=== PATIENT | female | born 1980 | race Caucasian/White ===

== ENCOUNTER 2020-06-01 10:30 | Emergency (ER) | payer MEDICAID ==
[~2020-06-01] VITALS: Ht 157.4 cm; Wt 129.2 kg
--- NOTE | 2020-06-01 10:53 | ED Cardiac General ---
History of Present Illness General Chief Complaint: Cardiac/General Problems Stated Complaint: TACHYCARDIA,DIZZINESS,SOA Source: patient Exam Limitations: no limitations History of Present Illness Date Seen by Provider: Jun 01, 2020 Time Seen by Provider: 10:45 Initial Comments Patient is a 40-year-old female who presents to the emergency department today with a chief complaint of palpitations and shortness of breath. Patient states that she has a history of supraventricular tachycardia with . She last delivered twins in November 2019. Patient states she has not had any significant problems with palpitations until the last couple of days. She denies any changes in her diet or excessive caffeine use. She has no history of thyroid disease. She states that she was on diltiazem and metoprolol throughout the end of her for her palpitations but discontinued this after delivery. Patient does not recall her doses of diltiazem and metoprolol. Patient states that she is moving here from [place] and does not currently have a primary care physician. Patient denies any recent fevers, chills, productive cough. No complaints of GI or symptoms. Patient states that the time of my evaluation that she is asymptomatic. She states when her heart is beating rapidly she feels short of breath and she feels like "my heart is going to beat out of my chest". All other review of systems reviewed and negative except as stated above. Timing/Duration: 1-2 days Severity: moderate Activities at Onset: none Associated Systoms: Denies Symptoms Allergies and Home Medications Allergies Coded Allergies: No Known Drug Allergies (Unverified , 06/01/20) Patient Home Medication List Home Medication List Reviewed: Yes Review of Systems Review of Systems Constitutional: no symptoms reported EENTM: No Symptoms Reported Respiratory: No Symptoms Reported Cardiovascular: Lightheadedness, Palpitations Gastrointestinal: No Symptoms Reported Genitourinary: No Symptoms Reported Musculoskeletal: no symptoms reported Skin: no symptoms reported Psychiatric/Neurological: No Symptoms Reported Endocrine: No Symptoms Reported Past Uogfxum-Uaftts-Lkyjwe Hx Patient Social History Recent Foreign Travel: No Contact w/Someone Who Travel: No Physical Exam Vital Signs Vital Signs - First Documented 06/01/20 10:30 Temp 36.5 Pulse 85 Resp 20 B/P (MAP) 104/82 (89) Pulse Ox 97 O2 Delivery Room Air Capillary Refill : Height, Weight, BMI Height: '" Weight: lbs. oz. kg; BMI Method: General Appearance: No Apparent Distress, WD/WN, Obese HEENT: PERRL/EOMI Neck: Full Range of Motion Respiratory: Lungs Clear, Normal Breath Sounds, No Accessory Muscle Use, No Respiratory Distress Cardiovascular: Regular Rate, Rhythm, No Gallop, No JVD, No Murmur, Normal Peripheral Pulses Gastrointestinal: Normal Bowel Sounds Extremity: Normal Capillary Refill, Non Tender Neurologic/Psychiatric: Alert, Oriented x3, No Motor/Sensory Deficits, Normal Mood/Affect Skin: Normal Color, Warm/Dry Progress/Results/Core Measures Results/Orders Lab Results Laboratory Tests Test 06/01/20 11:08 Range/Units Sodium Level 138 135-145 MMOL/L Potassium Level 4.2 3.6-5.0 MMOL/L Chloride Level 105 98-107 MMOL/L Carbon Dioxide Level 20 L 21-32 MMOL/L Anion Gap 13 5-14 MMOL/L Blood Urea Nitrogen 15 7-18 MG/DL Creatinine 0.82 0.60-1.30 MG/DL Estimat Glomerular Filtration Rate > 60 BUN/Creatinine Ratio 18 Glucose Level 107 H 70-105 MG/DL Calcium Level 9.0 8.5-10.1 MG/DL Magnesium Level 2.0 1.6-2.4 MG/DL My Orders Orders - LALITA DUVAL MD Ed Iv/Invasive Line Start (06/01/20 10:48) Basic Metabolic Panel (06/01/20 10:48) Magnesium (06/01/20 10:48) Ekg Tracing (06/01/20 11:09) Continuous Ekg Monitoring (06/01/20 11:09) Vital Signs/I&O 06/01/20 10:30 Temp 36.5 Pulse 85 Resp 20 B/P (MAP) 104/82 (89) Pulse Ox 97 O2 Delivery Room Air Progress Progress Note : Time: 10:53 Progress Note 40-year-old female presents to the emergency room today with a chief complaint of palpitations. Evaluation today includes a physical exam, EKG, BM 7 with magnesium level. Patient will be monitored here in the emergency department for signs or symptoms of SVT and then appropriately treated if necessary. Patient is comfortable currently with no acute complaints. 1146 Patient's chemistry with magnesium are normal. Patient has had no episodes of supraventricular tachycardia here in the emergency department. She will be sent home with instructions to stay well-hydrated. She is recommended to drink some of the Gatorade supplements or flavored water supplements. She verbalizes understanding of these discharge instructions, all questions are sought and answered and she is stable for discharge. Initial ECG Impression Date: Jun 01, 2020 Initial ECG Impression Time: 10:40 Initial ECG Rate: 78 Initial ECG Rhythm: Normal Sinus Initial ECG Intervals: Normal Initial ECG Impression: Normal Initial ECG Comparisson: No Previous ECG Available Departure Impression Primary Impression: Palpitations Disposition: 01 HOME, SELF-CARE Condition: Stable Departure-Patient Inst. Decision time for Depature: 11:50 Ref[facility]: [facility] [place]ructions: Palpitations (DC) Add. Discharge Instructions: Drink plenty of fluids to stay well-hydrated. You can drink [id number] Gatorade or electrolyte infused water to keep your electrolytes up. Remember the techniques I explained to stop the rapid heartbeat if they become necessary. Please follow-up with a primary care physician. Return to the emergency room for any return of symptoms especially associated with chest pain, shortness of breath, passing out spells or any other emergent concerns. LALITA DUVAL MD Jun 01, 2020 10:53
[2020-06-01 11:29] LABS: CHLORIDE 105 MMOL/L (98-107); POTASSIUM 4.2 MMOL/L (3.6-5.0); SODIUM 138 MMOL/L (135-145)
[2020-06-01 11:31] LABS: GLUCOSE 107 MG/DL (70-105)
[2020-06-01 11:33] LABS: CARBON DIOXIDE 20 MMOL/L (21-32)
[2020-06-01 11:35] LABS: CREATININE SERUM 0.82 MG/DL (0.60-1.30); GFR ESTIMATED > 60
[2020-06-01 11:36] LABS: BUN/CREATININE RATIO 18
[2020-06-01 12:05] VITALS: BP 138/68
== END 2020-06-01 12:05 | disposition home or self-care (01) ==
LOC: ER 10:38
DX: R00.2 Palpitations (principal); E66.9 Obesity, unspecified
CPT/HCPCS: 36415; 80048; 83735; 93005

== ENCOUNTER 2021-01-13 12:58 | Emergency (ER) | payer MEDICAID ==
[~2021-01-13] VITALS: Ht 157.5 cm; Wt 129.3 kg
--- NOTE | 2021-01-13 13:17 | ED Cardiac General ---
History of Present Illness General Chief Complaint: Cardiac/General Problems Stated Complaint: PVC Source: patient Exam Limitations: no limitations History of Present Illness Date Seen by Provider: Jan 13, 2021 Time Seen by Provider: 13:05 Initial Comments Patient is a 40-year-old female who presents to the emergency department today with a chief complaint of chest discomfort related to having frequent PVCs. Patient states that she was diagnosed with these when she was with her twins about a year ago. Patient states that she was placed on diltiazem and metoprolol but was taken off after . Patient states she is occasionally felt them since that time but over the last couple of days has had increasing frequency. Patient states that it feels like it is causing "panic attacks". She feels a little nauseous with the PVCs. She denies any recent illnesses such as fevers, chills, cough congestion, nausea, vomiting, diarrhea. No urinary complaints. Patient states she started her menstrual cycle today. She denies excessive caffeine use stating that she only drinks 2 cups of coffee a day. All other review of systems reviewed and negative except as stated above. Timing/Duration: constant, getting worse Severity: moderate Location: central Activities at Onset: none Prior CP/Workup: other (Prior echocardiogram and cardiology evaluation in [place]) NTG SL COAL WHEELER: No ASA po COAL WHEELER: No Allergies and Home Medications Allergies Coded Allergies: No Known Drug Allergies (Unverified , 06/01/20) Patient Home Medication List Home Medication List Reviewed: Yes Review of Systems Review of Systems Constitutional: see HPI EENTM: No Symptoms Reported Respiratory: No Symptoms Reported Cardiovascular: Palpitations Gastrointestinal: No Symptoms Reported Genitourinary: No Symptoms Reported Musculoskeletal: no symptoms reported Skin: no symptoms reported Psychiatric/Neurological: Anxiety All Other Systems Reviewed Negative Unless Noted: Yes Past Jvcpinv-Empctp-Ikibag Hx Patient Social History 2nd Hand Smoke Exposure: No Recent Hopitalizations: No Past Medical History Surgeries: Yes Appendectomy, Section Respiratory: Yes Asthma Cardiac: Yes (svt) Irregular Heartbeat Neurological: No Genitourinary: No Gastrointestinal: No Musculoskeletal: No Endocrine: No HEENT: No Cancer: No Psychosocial: No Integumentary: No Blood Disorders: No Physical Exam Vital Signs Vital Signs - First Documented 01/13/21 13:04 Temp 36.5 Pulse 87 Resp 20 B/P (MAP) 184/135 (151) O2 Delivery Room Air Capillary Refill : Height, Weight, BMI Height: '" Weight: lbs. oz. kg; 52.00 BMI Method: General Appearance: No Apparent Distress, WD/WN HEENT: PERRL/EOMI Neck: Normal Inspection Respiratory: Lungs Clear, Normal Breath Sounds, No Accessory Muscle Use Cardiovascular: Regular Rate, Rhythm, Other (Occasional PVCs auscultated) Gastrointestinal: Normal Bowel Sounds, Non Tender, Soft Extremity: Normal Inspection Neurologic/Psychiatric: Alert, Oriented x3, No Motor/Sensory Deficits, Normal Mood/Affect Skin: Normal Color, Warm/Dry Progress/Results/Core Measures Results/Orders Lab Results Laboratory Tests Test 01/13/21 13:21 Range/Units White Blood Count 8.8 4.3-11.0 10^3/uL Red Blood Count 5.05 3.80-5.11 10^6/uL Hemoglobin 15.0 11.5-16.0 g/dL Hematocrit 45 35-52 % Mean Corpuscular Volume 88 80-99 fL Mean Corpuscular Hemoglobin 30 25-34 pg Mean Corpuscular Hemoglobin Concent 34 32-36 g/dL Red Cell Distribution Width 13.5 10.0-14.5 % Platelet Count 296 130-400 10^3/uL Mean Platelet Volume 8.9 L 9.0-12.2 fL Immature Granulocyte % (Auto) 1 % Neutrophils (%) (Auto) 54 42-75 % Lymphocytes (%) (Auto) 38 12-44 % Monocytes (%) (Auto) 4 0-12 % Eosinophils (%) (Auto) 2 0-10 % Basophils (%) (Auto) 1 0-10 % Neutrophils # (Auto) 4.8 1.8-7.8 10^3/uL Lymphocytes # (Auto) 3.4 1.0-4.0 10^3/uL Monocytes # (Auto) 0.4 0.0-1.0 10^3/uL Eosinophils # (Auto) 0.2 0.0-0.3 10^3/uL Basophils # (Auto) 0.0 0.0-0.1 10^3/uL Immature Granulocyte # (Auto) 0.1 0.0-0.1 10^3/uL Sodium Level 141 135-145 MMOL/L Potassium Level 4.2 3.6-5.0 MMOL/L Chloride Level 106 98-107 MMOL/L Carbon Dioxide Level 22 21-32 MMOL/L Anion Gap 13 5-14 MMOL/L Blood Urea Nitrogen 15 7-18 MG/DL Creatinine 0.81 0.60-1.30 MG/DL Estimat Glomerular Filtration Rate > 60 BUN/Creatinine Ratio 19 Glucose Level 89 70-105 MG/DL Calcium Level 9.3 8.5-10.1 MG/DL Magnesium Level 2.1 1.6-2.4 MG/DL Thyroid Stimulating Hormone (TSH) 1.17 0.35-4.94 UIU/ML Free Thyroxine 0.90 0.70-1.48 NG/DL My Orders Orders - LALITA DUVAL MD Ed Iv/Invasive Line Start (01/13/21 13:14) Cbc With Automated Diff (01/13/21 13:14) Basic Metabolic Panel (01/13/21 13:14) Magnesium (01/13/21 13:14) Thyroid Stimulating Hormone (01/13/21 13:17) Free T4 (Free Thyroxine) (01/13/21 13:17) Ekg Tracing (01/13/21 14:30) Vital Signs/I&O 01/13/21 13:04 Temp 36.5 Pulse 87 Resp 20 B/P (MAP) 184/135 (151) O2 Delivery Room Air Progress Progress Note : Time: 14:41 Progress Note Patient continues to be quite anxious with her PVCs. I discussed starting her back on a beta-solo. Her labs have been reviewed and are all within normal limits including thyroid function and magnesium. The patient states that on the lowest dose of beta-solo when she started it a year ago her blood pressure dropped very low on a twice daily dosing schedule. I recommended that we start her on just once a day dosing and see if that will relieve some of the symptoms of her PVCs. Patient is agreeable to this. I recommended taking the metoprolol once daily in the morning. Patient is agreeable with this all questions are sought and answered. Patient is stable for discharge. Initial ECG Impression Date: Jan 13, 2021 Initial ECG Impression Time: 14:31 Initial ECG Rate: 73 Initial ECG Rhythm: Normal Sinus Initial ECG Intervals TN 115, QRS 82, QTc 418 Comment Occasional PVC Departure Impression Primary Impression: PVCs (premature ventricular contractions) Disposition: 01 HOME, SELF-CARE Condition: Stable Departure-Patient Inst. Decision time for Depature: 14:39 Referrals: [facility]/TIA ROBERTSON,LOCAL PHYSICIAN (PCP) Primary Care Physician Patient Instructions: Ventricular Premature Beats Add. Discharge Instructions: Drink plenty of fluids to stay well-hydrated. Stop drinking any and all caffeine products. Start taking the metoprolol 25 mg once daily, monitor your blood pressure with this medication. [facility] follow[facility] with [facility]. Return to the emergency room for any worsening symptoms, chest pain, shortness of breath or other emergent concerning symptoms. Scripts Metoprolol Tartrate (Metoprolol Tartrate) 25 Mg Tablet 25 MG PO DAILY, #30 TAB Prov: LALITA DUVAL MD 01/13/21 LALITA DUVAL MD Jan 13, 2021 13:17
[2021-01-13 13:31] LABS: BASOPHILS % (AUTO) 1 % (0-10); EOSINOPHILS # (AUTO) 0.2 10^3/uL (0.0-0.3); EOSINOPHILS % (AUTO) 2 % (0-10); HEMATOCRIT 45 % (35-52); LYMPHOCYTES # (AUTO) 3.4 10^3/uL (1.0-4.0); LYMPHOCYTES % (AUTO) 38 % (12-44); MEAN CORPUSCULAR HEMOGLOBIN 30 pg (25-34); MEAN CORPUSCULAR HGB CONC 34 g/dL (32-36); MEAN CORPUSCULAR VOLUME 88 fL (80-99); MEAN PLATELET VOLUME 8.9 fL (9.0-12.2); MONOCYTES # (AUTO) 0.4 10^3/uL (0.0-1.0); MONOCYTES % (AUTO) 4 % (0-12); NEUTROPHILS # (AUTO) 4.8 10^3/uL (1.8-7.8); NEUTROPHILS % (AUTO) 54 % (42-75); PLATELET COUNT 296 10^3/uL (130-400); WHITE BLOOD COUNT 8.8 10^3/uL (4.3-11.0)
[2021-01-13 13:38] LABS: CHLORIDE 106 MMOL/L (98-107); POTASSIUM 4.2 MMOL/L (3.6-5.0); SODIUM 141 MMOL/L (135-145)
[2021-01-13 13:39] LABS: CALCIUM 9.3 MG/DL (8.5-10.1); GLUCOSE 89 MG/DL (70-105)
[2021-01-13 13:41] LABS: CARBON DIOXIDE 22 MMOL/L (21-32)
[2021-01-13 13:43] LABS: CREATININE SERUM 0.81 MG/DL (0.60-1.30); GFR ESTIMATED > 60
[2021-01-13 13:44] LABS: BUN/CREATININE RATIO 19
[2021-01-13 13:46] LABS: MAGNESIUM 2.1 MG/DL (1.6-2.4)
[2021-01-13] MEDS ORDERED: METO-333 PO (14:41)
[2021-01-13 14:47] VITALS: BP 144/72
== END 2021-01-13 14:47 | disposition home or self-care (01) ==
LOC: EDUNIT# 12:58 → ER 13:00
DX: I49.3 Ventricular premature depolarization (principal); J45.909 Unspecified asthma, uncomplicated
CPT/HCPCS: 36415; 80048; 83735; 84439; 84443; 85025

== ENCOUNTER → 2021-03-02 | Outpatient (CLI) | payer OTHER ==
[~2021-03-02] MED LIST: METO-333 PO
== END ==
LOC: CARD 11:30
PROVIDERS: ATTEND Internal Medicine Cardiovascular Disease
DX: I10 Essential (primary) hypertension (principal); I25.10 Atherosclerotic heart disease of native coronary artery without angina pectoris; I49.9 Cardiac arrhythmia, unspecified
CPT/HCPCS: 93225; 93226; 93306